=== PATIENT | female | born 1965 | race Caucasian/White ===

== ENCOUNTER 2021-09-07 14:09 | Outpatient (CLI) | payer OTHER, SELFPAY ==
[2021-09-07 18:06] LABS: Vitamin D,25 Hydroxy 15.2 ng/mL
[2021-09-07 18:20] LABS: ALB/GLOB Ratio 1.3 RATIO (0.9-2.4); AST(SGOT) 15 U/L (15-37); Alanine Aminotransfer ALT/SGPT 23 U/L (13-56); Albumin, Serum 4.3 g/dL (3.2-5.0); Alkaline Phosphatase 50 U/L (45-117); Anion Gap 7 (5-15); BUN 10 mg/dL (7-18); BUN/Creat Ratio 16.4 RATIO (10-20); Calcium,Total 9.1 mg/dL (8.5-10.1); Chloride 104 mmol/L (98-107); Cholesterol 183 mg/dL (200); Creatinine, Serum 0.61 mg/dL (0.55-1.02); EST Glomerular Filtration Rate 108 mL/min (>60); Est Glom Filt Rate - Afr Amer 130 mL/min (>60); Globulin 3.3 g/dL (2.2-4.2); Glucose 86 mg/dL (74-106); High Density Lipoprotein 76 mg/dL; Potassium 3.5 mmol/L (3.5-5.1); Protein, Total 7.6 g/dL (6.4-8.2); Sodium Level 138 mmol/L (136-145); Thyroid Stim Hormone (TSH) 1.48 uIU/mL (0.358-3.74); Triglycerides 66 mg/dL; Very Low Density Lipoprotein 13 mg/dL (5-40)
== END 2021-09-07 23:59 | disposition home or self-care (01) ==
LOC: MFPLAB 14:16
PROVIDERS: Visit Provider Family Medicine
DX: Z00.00 Encounter for general adult medical examination without abnormal findings (principal)
CPT/HCPCS: 36415; 80053; 80061; 82306; 84443

== ENCOUNTER → 2023-07-18 | Outpatient (CLI) | payer OTHER, SELFPAY ==
--- NOTE | 2023-07-18 11:10 | RAD_ITS ---
INDICATION: PAIN EXAMINATION/TECHNIQUE: X-RAY - RIGHT XR Knee Complete 4 Views or More COMPARISON: None FINDINGS: SOFT TISSUES: Mild anterior and medial knee edema. . No subcutaneous emphysema. No radiopaque foreign body. BONES/JOINTS: Medial and patellofemoral compartment joint space narrowing with osteophyte formation.. Normal alignment. No sclerotic or destructive changes observed. RAD/Knee 4 or More Views IMPRESSION: Moderate multi compartment osteoarthritis. Mild anterior and medial knee edema. Electronically Signed: Yogesh Kirby MD at 4:06 EST ,
[2023-07-18 12:26] LABS: Anion Gap 8 (5-15); BUN 11 mg/dL (7-18); BUN/Creat Ratio 19.6 RATIO (10-20); Calcium,Total 9.6 mg/dL (8.5-10.1); Chloride 104 mmol/L (98-107); Cholesterol 181 mg/dL (200); Creatinine, Serum 0.56 mg/dL (0.55-1.02); EST Glomerular Filtration Rate 118 mL/min (>60); Est Glom Filt Rate - Afr Amer 143 mL/min (>60); Glucose 100 mg/dL (74-106); High Density Lipoprotein 74 mg/dL; Potassium 3.8 mmol/L (3.5-5.1); Sodium Level 137 mmol/L (136-145); Triglycerides 83 mg/dL; Very Low Density Lipoprotein 17 mg/dL (5-40)
[2023-07-18 12:27] LABS: Vitamin D,25 Hydroxy 26.6 ng/mL
== END | disposition home or self-care (01) ==
PROVIDERS: PCP Family Medicine; Referring Provider Family Medicine; Visit Provider Family Medicine
DX: Z00.00 Encounter for general adult medical examination without abnormal findings (principal); E55.9 Vitamin D deficiency, unspecified; M25.561 Pain in right knee
CPT/HCPCS: 36415; 73564; 80048; 80061; 82306

== ENCOUNTER → 2023-07-25 | Outpatient (CLI) | payer OTHER, SELFPAY ==
--- NOTE | 2023-07-25 07:08 | BI_ITS ---
MAMMOGRAPHY - BILATERAL SCREENING REASON FOR EXAM: Female, 57 years old. Routine annual screening examination. PERTINENT HISTORY: Aunt with breast cancer. TECHNIQUE: Digital bilateral breast niels (3D mammographic acquisition) in the CC and MLO projections. 2-D mediolateral oblique (MLO) and craniocaudad (CC) views of both breasts were obtained. CAD: Full Field Digital Mammography with Computer Added Detection was performed. COMPARISON: No comparison mammograms available at this time. If any prior films become available, an addendum to this report can be generated. FINDINGS: Breast Composition: There are scattered areas of fibroglandular density. There are no dominant masses or suspicious calcifications. Small benign-appearing bilateral axillary lymph nodes. No other significant abnormalities are identified. There has been no significant change since the prior study. BI/SCRN MAMM (CAD)W/NIELS BILAT IMPRESSION: Stable bilateral screening mammogram. Yearly follow-up mammogram recommended. (A) ASSESSMENT CATEGORY: BIRADS Category 2: Benign. A letter regarding these results will be sent to the patient by the facility within 30 days. Approximately 10% of breast cancers are not detected by mammography. A normal mammogram should not delay biopsy of a clinically suspicious abnormality. [id number] Electronically Signed: Hari Robison MD at 10:12 EST ,
== END | disposition home or self-care (01) ==
LOC: OPBI 07:06
PROVIDERS: PCP Family Medicine; Referring Provider Family Medicine; Visit Provider Family Medicine
DX: Z12.31 Encounter for screening mammogram for malignant neoplasm of breast (principal)
CPT/HCPCS: 77063; 77067

== ENCOUNTER 2024-07-11 07:38 | Day surgery (SDC) | payer OTHER, SELFPAY ==
[2024-07-11] VITALS (7 sets, daily range): BP systolic 111–148; BP diastolic 85–97; PULSE 67–96; RESP 16–18; TEMP 36.3–36.8; O2SAT 98–99; BMI 29.7
--- NOTE | 2024-07-11 07:50 | HP.PCM_ITS ---
HPI - General General Date of Service: 07/11/24 HPI Narrative SIMONA BRIZUELA, is a 58 F who presents for screening colonoscopy. Patient never had previous colonoscopy. Patient denies any family history of colon cancer. Patient denies any chronic abdominal pain/nausea/vomiting/reflux. Patient has bowel movements daily denies any blood. [facility] Medical History (Updated 07/09/24 @ 15:39 by Amarilys Granados) Wears glasses Arthritis Low iron Smoker History of edema Leg cramps Home Medications ?Medication ?Instructions ?Recorded ?Last Taken ?Type cholecalciferol (vitamin D3) 50 100 mcg PO QDAY 06/04/24 Unknown History mcg (2,000 unit) capsule Allergy/AdvReac Type Severity Reaction Status Date / Time penicillin G Allergy Hives Verified 07/11/24 07:46 Penicillins Allergy Hives Verified 07/11/24 07:46 Family History (Updated 06/04/24 @ 09:14 by Nanette Rea) Sister Colon polyps Surgical History Hx of tubal ligation Hx of cone biopsy of cervix Social History (Updated 06/04/24 @ 09:15 by Nanette Rea) household members: spouse current occupational status: employed Smoking Status: Current every day smoker tobacco type: cigarettes alcohol intake: current alcohol intake frequency: a few times a week Alcohol type: beer substance use type: does not use Past Medical/Surgical History Planned Operation Planned Operative Procedure(s): CSCOPE Previous Hospitalizations/Surgeries HX Hospitalizations: No Any Problems With Anesthesia: No You/Your Family Experience Fever (Hyperthermia) With Anes: No Cholinesterase deficiency: No Cardiovascular Hx Hypertension: No Respiratory Hx Sleep Apnea: No Hx Respiratory Tract Infection/Cold (presently): No Do You Snore Loudly (louder than talking or can be heard): Yes Do You Often Feel Tired/ Fatigued/ Sleepy Dring Daytime?: No Has Anyone Observed You Stop Breathing During Sleep?: No Result (for STOP score): Negative Smoking Status: Current every day smoker Neurological Does patient have nerve stimulator: No Reproduction : No Allergies penicillin G Allergy (Verified 07/11/24 07:46) Hives Penicillins Allergy (Verified 07/11/24 07:46) Hives Discharge Is Pt Admitted From a Group Home, or a Correction: No After D/C, Where Do you Plan to Go: Return Home Physical Exam Const alert, oriented x3 and no apparent distress HEENT normocephalic and head/scalp atraumatic Resp normal respiratory effort Cardio regular rate GI soft to palpation and non-tender; Negative for non-distended Palpation: Negative for guarding Extremity no clubbing, cyanosis or edema Skin no rashes or lesions noted Neuro CN's II-XII intact bilaterally Psych mental status grossly normal Assessment & Plan Assessment/Plan (1) Encounter for screening for malignant neoplasm of colon: Surgery Risks - Colonoscopy I discussed with the patient the risks of the procedure: Yes Risks Include but are not Limited To: Risks include but are not limited to: Bleeding, perforation requiring further surgery, inability to complete colonoscopy requiring barium enema.
--- NOTE | 2024-07-11 08:31 | PCM.PRE.AN2 ---
ASA Classification* ASA Classification ASA Classification: 2 Assessment & Plan Anesthesia* Anesthesia Assessment Anesthesia Assessment: Discussed sedation and/or anesthesia options, risks, benefits, and alternatives with patient/parents/legal guardian/POA. Questions invited. The patient/parents/legal guardian/POA seems to understand and agrees to proceed with anesthesia plan. Reviewed the physical assessment, medical history, allergy history and patient home medications list prior to surgery/procedure/anesthetic and documented any changes. Performed airway and anesthesia risk assessments. Anesthesia Type Anesthesia Type: MAC Anesthesia Focused Assessment* Temperature: 97.6 F Pulse Rate: 96 Blood Pressure: 148/97 Respiratory Rate: 17 Pulse Ox: 98 Airway Assessment Mouth opens: >3 cm Mallampati Score: II Focused Labs Anesthesia Preop lab: CBC CHEMISTRY Potassium 3.8 mmol/L (3.5-5.1) 07/18/23 11:19 Sodium 137 mmol/L (136-145) 07/18/23 11:19 BUN 11 mg/dL (7-18) 07/18/23 11:19 Creatinine 0.56 mg/dL (0.55-1.02) 07/18/23 11:19 Glucose 100 mg/dL (74-106) 07/18/23 11:19 TSH 1.48 uIU/mL (0.358-3.74) 09/07/21 14:17 COAG Pre-Assessment Diagnosis/Proposed Procedure Planned Operative Procedure(s): CSCOPE Anesthesia History Anesthesia History - bonderite operator: Anesthesia History - bonderite operator Hx Hospitalization No 07/11/24 07:53 Any Problems With Anesthesia No 07/11/24 07:53 Cholinesterase deficiency No 07/11/24 07:53 You/Your Family Experience No 07/11/24 07:53 fever (hyperthermia) with Relationship Recent Exposure to Contagious No 07/11/24 07:53 Disease Does patient have nerve No 07/11/24 07:53 stimulator Patient instructed to have device shut off --Does patient have Pacemaker No 07/11/24 07:53 or ICD? When Was Last Pacemaker Check QUESTION #4 FULL TEXT: You/Your Family Experience fever (hyperthermia) with Anesthesia Last Oral Intake Last Oral intake: Last Oral Intake NPO since 03:30 07/11/24 07:53 Meds taken in AM with sips of No 07/11/24 07:53 water? Meds patient instructed to take am of surgery PONV PONV - bonderite operator: PONV - bonderite operator Female Yes 07/09/24 15:35 HX of Motion Sickness No 07/09/24 15:35 HX of N/V After Surgery No 07/09/24 15:35 Non-Smoker No 07/09/24 15:35 Duration of Surgery greater No 07/09/24 15:35 than 60 minutes Number of Risk Factors 1 07/09/24 15:35 PONV Score Low Risk 07/09/24 15:35 Height & Weight Height & Weight: Anesthesia: Height & Weight Height 5 ft 3 in 07/11/24 07:53 Weight: 76 kg 07/11/24 07:53 Body Mass Index (BMI) 29.7 07/11/24 07:53 Respiratory Assessment Respiratory Assessment - bonderite operator: Respiratory Tract Infection Hx - bonderite operator Hx Respiratory Tract Infection No 07/11/24 07:53 STOP Sleep Apnea STOP Sleep Apnea - bonderite operator: STOP Sleep Apnea - bonderite operator Hx Hypertension No 07/11/24 07:53 Hx Sleep Apnea No 07/11/24 07:53 CPAP BIPAP Do you snore loudly (louder Yes 07/11/24 07:53 than talking or can be heard Do you often feel tired/ No 07/11/24 07:53 fatigued/ sleepy during daytime? Has anyone observed you stop No 07/11/24 07:53 breathing during sleep? STOP Results Negative 07/11/24 07:59 QUESTION #5 FULL TEXT : Do you snore loudly (louder than talking or can be heard through closed doors)? Tobacco Use History Tobacco Use History - bonderite operator: Tobacco Use History - bonderite operator Tobacco Use Smoking Status Current every day smoker 07/11/24 07:53 Hx Tobacco Use Yes 07/09/24 15:35 Years Smoking Packs Smoked per Day 0.5 07/09/24 15:35 Smoking Cessation Date was within the last 15 years Hx Smoking Cessation Date Hx Smoking Cessation Counseling Hematologic Medial History Hematologic Hx - bonderite operator: Hematologic Medical Hx - legal receptionist Hx of Blood Transfusion No 07/09/24 15:35 Hx of Transfusion in last 3 No 07/09/24 15:35 Months Date of Last Transfusion (if within last 3 months) Ever experience any problems No 07/09/24 15:35 with transfusion(s)? Specify any problems Hx of Preganancy in last 3 N/A 07/09/24 15:35 Months Nurse Filling Out Transfusion NBUCHER 07/09/24 15:35 & Questions: Date: 07/09/24 07/09/24 15:35 Time: 15:36 07/09/24 15:35 Patient unable to answer at this time (ie. confused, unrespo /Reproduction History /Reproductive History - bonderite operator: /Reproductive Hx- bonderite operator Hx Now No 07/11/24 07:53 Gestational Age (in weeks): EDC: Hx Hx Para Hx Section SAB No 07/09/24 15:35 PFSH Medical History Wears glasses Arthritis Low iron Smoker History of edema Leg cramps Home Medications ?Medication ?Instructions ?Recorded ?Last Taken ?Type cholecalciferol (vitamin D3) 50 100 mcg PO QDAY 06/04/24 07/10/24 History mcg (2,000 unit) capsule Allergy/AdvReac Type Severity Reaction Status Date / Time penicillin G Allergy Hives Verified 07/11/24 07:46 Penicillins Allergy Hives Verified 07/11/24 07:46 Family History Sister Colon polyps Surgical History Hx of tubal ligation Hx of cone biopsy of cervix Social History household members: spouse current occupational status: employed Smoking Status: Current every day smoker tobacco type: cigarettes alcohol intake: current alcohol intake frequency: a few times a week Alcohol type: beer substance use type: does not use Review of Systems (Anesthesia) ROS Narrative System reviewed and no additional complaints, except as documented.
--- NOTE | 2024-07-11 09:00 | COLBX_PTH ---
PATIENT: SIMONA BRIZUELA LOC: EN U#:[id number] AGE/SX: 58/F ROOM: RE07/11/[address]: Dr. Christy Dias MD : 1965 BED: DIS: 07/11/2024 SPEC #: [id number] RECD: 07/11/24 10:40 STATUS: JUDE XOCHILT #: [id number] NICHOLE: 07/11/24 09:[address]: Christy Dias DEPT: SURGICAL PATHOLOGY RECD BY: Matilda Gannon ENTERED: 07/11/24 11:21 SP TYPE: COLON BX OTHR DR: Dr. Hari Ridley MD Tissues: A - Sigmoid colon biopsy B - Rectum, NOS C - Rectum, NOS Procedures: Surgery Specimen Level IV HEADER OPERATION: Colonoscopy, polypectomies and biopsies PRE-OP DIAGNOSIS: Encounter for screening for malignant neoplasm of colon TISSUE SUBMITTED: A- Sigmoid polyp, B- Rectum polyp x5, C- Rectum polyp biopsy x2 MICROSCOPIC DIAGNOSIS A. Sigmoid polyp, polypectomy: Hyperplastic polyp. B. Rectum polyp x5, polypectomy: Fragments of hyperplastic polyp. C. Rectum polyp x2, biopsy: Fragments of hyperplastic polyp. 07/12/2024 MICROSCOPIC DESCRIPTION Slides are reviewed. GROSS DESCRIPTION A. Received in fixative is one container labeled with the patient's name and designated Sigmoid polyp. The specimen consists of a pink-red polyp measuring 1.0 x 0.6 x 0.5 cm. The presumed base is inked. The polyp is serially sectioned and submitted entirely in one cassette. B. Received in fixative is one container labeled with the patient's name and designated Rectum polyp x5. The specimen consists of multiple irregular fragments of light li soft tissue that in aggregate measure 1.5 x 1.0 x 0.2 cm. The specimen is totally submitted in one cassette. C. Received in fixative is one container labeled with the patient's name and designated Rectum polyp biopsy x2. The specimen consists of multiple irregular fragments of light li soft tissue that in aggregate measure 1.0 x 0.3 x 0.1 cm. The specimen is totally submitted in one cassette. 07/11/2024 TC:1 CPT:[id number]
--- NOTE | 2024-07-11 09:52 | PCM.POST.ANE ---
Anesthesia: Postop Eval I Current Vital Signs Temperature: 97.3 F Pulse Rate: 68 Blood Pressure: 111/89 Respiratory Rate: 18 Pulse Ox: 99 Assessment Airway patent: Yes Spontaneous unlabored respirations: Yes nausea: No Vomiting: No Anesthesia Complication: No Fluid Hydration Crystalloid volume administer (ml): 10 Total IV fluid infused: 10 Progress Note Anesthesia document: Postop Eval 1 completed: Yes
--- NOTE | 2024-07-11 09:54 | OP.COLON_ITS ---
Patient Name: Valarie Valecnia Procedure Date: 07/11/2024 9:15 AM Date of : 1965 Age: 58 Procedure: Colonoscopy Indications: Screening for colorectal malignant neoplasm Providers: Christy Dias MD Referring MD: Christy Dias MD Medicines: Monitored Anesthesia Care Patient Profile: This is a 58 year old female. Last Colonoscopy: none. The patient's first colonoscopy is today. Complications: No immediate complications. Procedure: Pre-Anesthesia Assessment: - Prior to the procedure, a History and Physical was performed, and patient medications and allergies were reviewed. The patient's tolerance of previous anesthesia was also reviewed. The risks and benefits of the procedure and the sedation options and risks were discussed with the patient. All questions were answered, and informed consent was obtained. Prior Anticoagulants: The patient has taken no anticoagulant or antiplatelet agents. ASA Grade Assessment: Per anesthesia. After reviewing the risks and benefits, the patient was deemed in satisfactory condition to undergo the procedure. After I obtained informed consent, the scope was passed under direct vision. Throughout the procedure, the patient's blood pressure, pulse, and oxygen saturations were monitored continuously. The pediatric colonoscope was introduced through the anus and advanced to the cecum, identified by the appendiceal orifice, ileocecal valve and palpation. The colonoscopy was performed without difficulty. The patient tolerated the procedure well. The quality of the bowel preparation was good. Scope In: 9:24:39 AM Scope Withdrawal Time 0 hours 17 minutes 18 seconds Scope Out: 9:46:54 AM Total Procedure Duration Time 0 hours 22 minutes 15 seconds Findings: The perianal and digital rectal examinations were normal. Five semi-pedunculated polyps were found in the rectum. The polyps were less than 5 mm in size. These polyps were removed with a hot snare. Resection and retrieval were complete. A 10 mm polyp was found in the sigmoid colon. The polyp was semi-pedunculated. The polyp was removed with a hot snare. Resection and retrieval were complete. Two sessile polyps were found in the rectum. The polyps were less than 5 mm in size. These polyps were removed with a cold biopsy forceps. Resection and retrieval were complete. The exam was otherwise without abnormality on direct and retroflexion views. Multiple small-mouthed diverticula were found in the sigmoid colon. Impression: - Five less than 5 mm polyps in the rectum, removed with a hot snare. Resected and retrieved. - One 10 mm polyp in the sigmoid colon, removed with a hot snare. Resected and retrieved. - Two less than 5 mm polyps in the rectum, removed with a cold biopsy forceps. Resected and retrieved. - The examination was otherwise normal on direct and retroflexion views. - Diverticulosis in the sigmoid colon. Recommendation: - Discharge patient to home. - Resume previous diet. - Continue present medications. - Await pathology results. - Repeat colonoscopy in 3 years for surveillance based on pathology results. Procedure Code(s): --- Professional --- 33769, PT, Colonoscopy, flexible; with removal of tumor(s), polyp(s), or other lesion(s) by snare technique 37706, 59, Colonoscopy, flexible; with biopsy, single or multiple Diagnosis Code(s): --- Professional --- Z12.11, Encounter for screening for malignant neoplasm of colon D12.8, Benign neoplasm of rectum D12.5, Benign neoplasm of sigmoid colon CPT copyright 2021 [employer]. All rights reserved. The codes documented in this report are preliminary and upon mail examiner review may be revised to meet current compliance requirements. MD Christy Fuentes MD 07/11/2024 9:53:49 AM This report has been signed electronically. Number of Addenda: 0 Note Initiated On: 07/11/2024 9:15 AM
--- NOTE | 2024-07-11 09:54 | OP.CCLET_ITS ---
07/11/2024 Hari Ridley MD [address] [id number] Re : Colonoscopy procedure for Valarie Valencia Dear Dr. Ridley This procedure was performed on Thursday, July 11, 2024. My impressions and recommendations are as follows: Impressions : - Five less than 5 mm polyps in the rectum, removed with a hot snare. Resected and retrieved. - One 10 mm polyp in the sigmoid colon, removed with a hot snare. Resected and retrieved. - Two less than 5 mm polyps in the rectum, removed with a cold biopsy forceps. Resected and retrieved. - The examination was otherwise normal on direct and retroflexion views. - Diverticulosis in the sigmoid colon. Recommendations : - Discharge patient to home. - Resume previous diet. - Continue present medications. - Await pathology results. - Repeat colonoscopy in 3 years for surveillance based on pathology results. My findings are described in the full procedure note, which is enclosed. If I can be of further assistance, please feel free to contact me at Doctor phone number(s): , Work: . Sincerely, MD Christy Fuentes MD 07/11/2024 9:53:49 AM This report has been signed electronically.
--- NOTE | 2024-07-11 12:59 | POSTOPAN2_ITS ---
Anesthesia Postop Eval I Sum Postop Eval Completion status Anesthesia document: Postop Eval 1 completed: Yes Anesthesia Postop Eval I Summary Anesthesia Postop Eval I Summary: Anesthesia Postop Eval I: Assessment Summary Airway patent Yes 07/11/24 09:52 LIFT TRUCK OPERATOR.CSIR Spontaneous unlabored Yes 07/11/24 09:52 LIFT TRUCK OPERATOR.CSIR respirations Mental status nausea No 07/11/24 09:52 LIFT TRUCK OPERATOR.CSIR Vomiting No 07/11/24 09:52 LIFT TRUCK OPERATOR.CSIR Anesthesia Postop Eval I: Fluid Summary Crystalloid volume administer 10 07/11/24 09:52 LIFT TRUCK OPERATOR.CSIR (ml) Colloids volume administered ( ml) Blood Product volume administered (ml) Total IV fluid infused 10 07/11/24 09:52 LIFT TRUCK OPERATOR.CSIR Anesthesia Postop Eval I: Summary Notes Anesthesia Complication No 07/11/24 09:52 LIFT TRUCK OPERATOR.CSIR Anesthesia Complication Comment: Post-operative progress note Anesthesia: Postop Eval II Evaluation Mental status: Awake Pain Level: 0 nausea: No Vomiting: No
--- NOTE | 2024-07-11 12:59 | PCM.POSTANE2 ---
Anesthesia Postop Eval I Sum Postop Eval Completion status Anesthesia document: Postop Eval 1 completed: Yes Anesthesia Postop Eval I Summary Anesthesia Postop Eval I Summary: Anesthesia Postop Eval I: Assessment Summary Airway patent Yes 07/11/24 09:52 TEST DESK OPERATOR.CSIR Spontaneous unlabored Yes 07/11/24 09:52 TEST DESK OPERATOR.CSIR respirations Mental status nausea No 07/11/24 09:52 TEST DESK OPERATOR.CSIR Vomiting No 07/11/24 09:52 TEST DESK OPERATOR.CSIR Anesthesia Postop Eval I: Fluid Summary Crystalloid volume administer 10 07/11/24 09:52 TEST DESK OPERATOR.CSIR (ml) Colloids volume administered ( ml) Blood Product volume administered (ml) Total IV fluid infused 10 07/11/24 09:52 TEST DESK OPERATOR.CSIR Anesthesia Postop Eval I: Summary Notes Anesthesia Complication No 07/11/24 09:52 TEST DESK OPERATOR.CSIR Anesthesia Complication Comment: Post-operative progress note Anesthesia: Postop Eval II Evaluation Mental status: Awake Pain Level: 0 nausea: No Vomiting: No
== END 2024-07-11 10:24 | disposition home or self-care (01) ==
LOC: EN 07:40 → AC 07:41
PROVIDERS: PCP Family Medicine; Referring Provider Surgery; Visit Provider Surgery
PROC: 0DJD8ZZ Inspection of Lower Intestinal Tract, Via Natural or Artificial Opening Endoscopic (ICD-10-PCS; CPT 45378; principal; 2024-07-11 08:55)
DX: Z12.11 Encounter for screening for malignant neoplasm of colon (principal); D12.5 Benign neoplasm of sigmoid colon; D12.8 Benign neoplasm of rectum; K57.30 Diverticulosis of large intestine without perforation or abscess without bleeding; F17.210 Nicotine dependence, cigarettes, uncomplicated
CPT/HCPCS: 45385; 45380

== ENCOUNTER → 2025-02-04 | Outpatient (CLI) | payer OTHER, SELFPAY ==
--- NOTE | 2025-02-04 09:13 | RAD_ITS ---
PROCEDURE: KNEE 4 OR MORE VIEWS 02/04/2025 REASON FOR EXAM: KNEE PAIN TECHNIQUE: KNEE 4 OR MORE VIEWS Laterality: Right COMPARISON: Right knee study dated 07/18/2023 FINDINGS: Bones: Normal mineralization of the osseous structures are noted. There are no fractures or dislocations. Joints: Moderate osteoarthritic changes are seen involving the medial femorotibial and patellofemoral joints. Osteophytes are seen off of the medial aspect of the proximal tibia and superior posterior aspect of the patella. Effusion: There is no suprapatellar bursa effusion Soft tissues: No soft tissue swelling is noted. RAD/Knee 4 or More Views IMPRESSION: Moderate arthritic changes involving the medial femorotibial and patellofemoral joints right knee Reading Location: [id number]
--- NOTE | 2025-02-04 09:13 | RAD_ITS ---
PROCEDURE: L/S SPINE MIN 4 VIEWS 02/04/2025 REASON FOR EXAM: BACK PAIN TECHNIQUE: L/S SPINE MIN 4 VIEWS FINDINGS: No evidence of acute fracture or dislocation. Pwis-[id number]-[id number] degenerative changes of the visualized spine. Lumbar facet arthropathy. Grade 1 anterolisthesis of L4 on L5 and L5 on S1. No visualized pars defects. RAD/L/S Spine Min 4 Views IMPRESSION: Spondylosis. Spondylolisthesis. Reading Location: [id number]
--- NOTE | 2025-02-04 09:13 | RAD_ITS ---
PROCEDURE: KNEE 4 OR MORE VIEWS 02/04/2025 REASON FOR EXAM: KNEE PAIN TECHNIQUE: KNEE 4 OR MORE VIEWS Laterality: Right COMPARISON: Right knee study dated 07/18/2023 FINDINGS: Bones: Normal mineralization of the osseous structures are noted. There are no fractures or dislocations. Joints: Moderate osteoarthritic changes are seen involving the medial femorotibial and patellofemoral joints. Osteophytes are seen off of the medial aspect of the proximal tibia and superior posterior aspect of the patella. Effusion: There is no suprapatellar bursa effusion Soft tissues: No soft tissue swelling is noted. RAD/Knee 4 or More Views IMPRESSION: Moderate arthritic changes involving the medial femorotibial and patellofemoral joints right knee Reading Location: [id number]
--- NOTE | 2025-02-04 09:13 | RAD_ITS ---
PROCEDURE: L/S SPINE MIN 4 VIEWS 02/04/2025 REASON FOR EXAM: BACK PAIN TECHNIQUE: L/S SPINE MIN 4 VIEWS FINDINGS: No evidence of acute fracture or dislocation. Dcyw-vi-hdggiogq degenerative changes of the visualized spine. Lumbar facet arthropathy. Grade 1 anterolisthesis of L4 on L5 and L5 on S1. No visualized pars defects. RAD/L/S Spine Min 4 Views IMPRESSION: Spondylosis. Spondylolisthesis. Reading Location: [id number]
== END | disposition home or self-care (01) ==
LOC: MTRAD 09:10
PROVIDERS: PCP Family Medicine; Referring Provider Family Medicine; Visit Provider Family Medicine
DX: M54.50 Low back pain, unspecified (principal); M25.561 Pain in right knee
CPT/HCPCS: 72110; 73564